=== PATIENT | female | born 1995 | race Caucasian/White ===

== ENCOUNTER 2018-08-19 10:27 | Outpatient (CLI) | payer OTHER ==
[2015-07-07 23:46] VITALS: BP 129/81
== END 2018-08-19 10:30 ==
LOC: LAB 10:27
PROVIDERS: ATTEND Nurse Practitioner Family
DX: Z32.01 Encounter for pregnancy test, result positive (principal)
CPT/HCPCS: 36415; 84703; 87491; 87591

== ENCOUNTER 2018-11-22 10:30 | Outpatient (CLI) | payer OTHER ==
[2015-07-07 23:46] VITALS: BP 129/81
== END 2018-11-22 10:35 | disposition home or self-care (01) ==
LOC: LABRHC 10:30
PROVIDERS: ATTEND Family Medicine
DX: N89.8 Other specified noninflammatory disorders of vagina (principal)
CPT/HCPCS: 87491; 87591